=== PATIENT | male | born 1940 | race Caucasian/White ===

== ENCOUNTER 2019-02-12 08:47 | Day surgery (SDC) | payer MEDICARE ==
[~2019-02-12] VITALS: Ht 167.6 cm; Wt 57.4 kg
[2019-02-12 09:28] VITALS: BP 144/86
[2019-02-12] MEDS ORDERED: TAMS-11 PO (09:28)
[2019-02-12] MEDS ORDERED: VALS320T2 PO (09:28)
[2019-02-12] MEDS ORDERED: LACTATED RINGERS 1,000 ML IV SCH (09:32)
[2019-02-12 10:05] LABS: ALANINE AMINOTRANSFERASE 11 U/L (12-78); ALBUMIN 3.4 g/dL (3.4-5.0); ANION GAP 9 mmol/L (5-15); CHLORIDE 107 mmol/L (98-107)
[2019-02-12 10:11] LABS: ALKALINE PHOSPHATASE 72 U/L (45-117); BILIRUBIN,TOTAL 0.5 mg/dL (0.2-1.0); TOTAL PROTEIN 7.7 g/dL (6.4-8.2)
[2019-02-12] MEDS ORDERED: SUCCINYLCHOLINE 20 MG/ML, 10ML ONE (13:23)
[2019-02-12] MEDS ORDERED: LIDOCAINE 2% 100MG/5ML SYRINGE ONE (13:23)
[2019-02-12] MEDS ORDERED: PROPOFOL 10 MG/ML, 20ML ONE (13:23)
[2019-02-12] MEDS ORDERED: FENTANYL PF 100 MCG/2ML IV PRN (14:00)
[2019-02-12] MEDS ORDERED: ACETAMINOPHEN 325 MG TABLET PO PRN (14:00)
[2019-02-12] MEDS ORDERED: OXYcodone 5 MG/5 ML ORAL.SOL UDC PO PRN (14:00)
[2019-02-12] MEDS ORDERED: ONDANSETRON ODT 8 MG PO PRN (14:00)
[2019-02-12] MEDS ORDERED: ONDANSETRON 2MG/ML, 2ML IV PRN (14:00)
[2019-02-12] MEDS ORDERED: PROMETHAZINE 25 MG/ML, 1ML IV PRN (14:00)
[2019-02-12] MEDS ORDERED: VALSARTAN 320 MG TABLET PO ONE (16:00)
== END 2019-02-12 18:22 | disposition home or self-care (01) ==
LOC: OUT 08:47
PROVIDERS: ATTEND Internal Medicine
DX: K22.2 Esophageal obstruction (principal); I10 Essential (primary) hypertension; Z88.8 Allergy status to other drugs, medicaments and biological substances
CPT/HCPCS: 36415; 43248; 80053; 93005; J0330; J2704; J7120